=== PATIENT | male | born 1990 | race Caucasian/White ===

== ENCOUNTER 2020-11-20 22:14 | Emergency (ER) | payer BC, MEDICAID ==
[2020-11-20] MEDS ORDERED: Lidocaine 1% with EPINEPHrine 1:100,000 50 ML MDV INFILT ONE (22:20)
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
[2020-11-21 08:36] VITALS: BP 115/58; PULSE 64
== END 2020-11-20 23:17 | disposition home or self-care (01) ==
LOC: LB.ED 22:14
DX: S01.111A Laceration without foreign body of right eyelid and periocular area, initial encounter (principal); Z88.2 Allergy status to sulfonamides; V86.99XA Unspecified occupant of other special all-terrain or other off-road motor vehicle injured in nontraffic accident, initial encounter
CPT/HCPCS: 12011; 99282-25